=== PATIENT | male | born 1950 | race Caucasian/White ===

== ENCOUNTER → 2017-02-24 | Outpatient (CLI) | payer BC | END | disposition home or self-care (01) | LOC: GMAL 11:10 | PROVIDERS: ATTEND Family Medicine | DX: D51.3 Other dietary vitamin B12 deficiency anemia (principal); E55.9 Vitamin D deficiency, unspecified ==

== ENCOUNTER → 2018-01-20 | Outpatient (CLI) | payer MEDICARE, OTHER | LOC: GMAL 12:10 | PROVIDERS: ATTEND Family Medicine | DX: E29.1 Testicular hypofunction (principal); Z12.5 Encounter for screening for malignant neoplasm of prostate | CPT/HCPCS: 84402; 84403; G0103 ==

== ENCOUNTER 2018-09-02 10:36 | Observation (INO) | payer MEDICARE, OTHER ==
[2018-09-02] MEDS ORDERED: ASPIRIN TABLET 325 MG TAB PO ONE (10:46)
[2018-09-02] MEDS ORDERED: VERAPAMIL ER 120 MG TAB PO ONE (10:54)
[2018-09-02] MEDS: VERAPAMIL ER 120 MG TAB PO ONE (10:55)
--- NOTE | 2018-09-02 11:04 | RAD ---
Study: Single Frontal View of the Chest. Indication:new afib, chest pressure Comparison: January 15, 2014 Impression: Cardiomegaly with mild central vascular congestion. Subtle bibasilar opacities which may reflect pneumonia, atelectasis, or pulmonary edema. Follow-up to resolution recommended. Tiny pleural effusions suspected. No pneumothorax. Electronically signed by: Deny Alva MD 09/02/2018 11:02 AM TREE SHEAR OPERATOR
[2018-09-02] MEDS ORDERED: MAGNESIUM SULFATE PREMIX 2GM 2 GM in PREMIX BAG 1 BAG IVPB ONE (11:58)
[2018-09-02] MEDS ORDERED: METOPROLOL TARTRATE INJ 5 MG/5 ML VIAL IV ONE (11:59)
--- NOTE | 2018-09-02 12:15 | ED.PDOC ---
History of Present Illness - General Chief Complaint: Cardiovascular Problem Stated Complaint: Weak, chest tightness, SOB Time Seen by Provider: 09/02/18 10:39 Source: patient Exam Limitations: no limitations - History of Present Illness Initial Comments: The patient is a 68-year-old male presenting to the emergency room secondary to one to 2 weeks of intermittent shortness of breath and very mild chest pressure. It was at its worse this morning before he came in to his primary care doctor's office. He had not taken his morning dose of verapamil yet and had come in for refill on some of his medications. He was found to have a heart rate in the 140s to 160s. Upon arrival here he is in A. fib with RVR. He does not apparently have any history of A. fib with RVR that he knows of however verapamil is a choice of antihypertensive medication without that history. He does not take any blood thinners. He is not currently having any chest pain. He reports some mild shortness of breath. He has not hypoxic. He is pleasant and cooperative. He has had some mild episodes of fluttering in his chest. No syncope or near syncope. No history of any coronary artery disease. No history of any valvular disease. Timing/Duration: unsure Severity: mild Improving Factors: nothing Worsening Factors: nothing Associated Symptoms: shortness of breath Allergies/Adverse Reactions: Allergies Hydrocodone [From Hydrocodone W/Acetaminophen] Allergy (Intermediate, Verified 09/02/18 11:14) Other Itching Morphine Adverse Reaction (Severe, Verified 09/02/18 11:14) Other Makes him "GO NUTS" Home Medications: Ambulatory Orders Atorvastatin Calcium 80 mg PO DAILY 01/14/14 Montelukast [Singulair] 10 mg PO DAILY 01/14/14 Valsartan-Hydrochlorothiazide [Diovan Hct 160-12.5 mg] 1 tab PO DAILY 01/14/14 Verapamil HCl [Verapamil HCl ER] 240 mg PO DAILY 01/15/14 Fluticasone Prop 0.05% Nasal [Flonase Nasal [place]] 100 mcg NA PRN 07/13/14 Budesonide-Formoterol Fumarate [Symbicort 160-4.5 Mcg/Act] 2 puff INH BID 09/02/18 Meloxicam 15 mg PO DAILY 09/02/18 Metformin HCl 1,000 mg PO BID 09/02/18 Tamsulosin [Flomax] 0.4 mg PO BEDTIME 09/02/18 raNITIdine HCL [Zantac] 150 mg PO DAILY 09/02/18 Review of Systems - Review of Systems Constitutional: States: no symptoms reported EENTM: States: no symptoms reported Respiratory: States: short of breath Cardiology: States: see HPI, palpitations Gastrointestinal/Abdominal: States: no symptoms reported Genitourinary: States: no symptoms reported Musculoskeletal: States: no symptoms reported Skin: States: no symptoms reported Neurological: States: no symptoms reported Endocrine: States: no symptoms reported All other Systems: No Change from Baseline Past Medical History (General) - Patient Medical History Hx Seizures: No Hx Stroke: No Hx Asthma: Yes Hx of COPD: No Hx Cardiac Disorders: No Hx Congestive Heart Failure: No Hx Pacemaker: No Hx Hypertension: Yes Hx Diabetes: Yes Hx Gastroesophageal Reflux: Yes Hx MRSA: No - Vaccination History Hx Influenza Vaccination: No Hx Pneumococcal Vaccination: No - Social History Hx Tobacco Use: Yes Hx Alcohol Use: No Hx Substance Use: No Hx Physical Abuse: No Hx Emotional Abuse: No Family Medical History - Family History Father Living Status: Cause of : Cardiac in nature Hx Family Hypertension: Yes Hx Cardiac Disease: Yes Hx Family Diabetes: Yes Physical Exam - Physical Exam General Appearance: Alert, Comfortable, No apparent distress Eye Exam: bilateral normal Ears, Nose, Throat: hearing grossly normal, normal ENT inspection, normal pharynx Neck: full range of motion, supple, normal inspection Respiratory: lungs clear, normal breath sounds, no respiratory distress, no accessory muscle use Cardiovascular/Chest: normal peripheral pulses, no edema, tachycardia, irregularly irregular Peripheral Pulses: radial,right: 2+, radial,left: 2+, dorsalis pedis,right: 2+, dorsalis pedis,left: 2+ Gastrointestinal/Abdominal: non tender - obese, soft Rectal Exam: deferred Back Exam: no CVA tenderness, no vertebral tenderness Extremity: normal range of motion, non-tender, normal inspection, no pedal edema, normal capillary refill Neurologic: cell reliner II-XII nml as tested, alert, normal mood/affect, oriented x 3 Skin Exam: normal color Comments: Vital Signs - 24 hr 09/02/18 09/02/18 09/02/18 10:36 11:00 11:15 Temperature 98.7 F Pulse Rate [ 154 H 136 H 122 H Apical] Respiratory 24 24 24 Rate Blood Pressure 116/85 148/83 114/90 [Left Arm] O2 Sat by Pulse 94 L 94 L 92 L Oximetry Progress - Progress Progress: 09/02/18 12:16 the patient is a 68-year-old male presenting to the emergency room secondary to mildly symptomatic atrial fibrillation with rapid ventricular rate that appears to be a new diagnosis. He did receive a dose of IV diltiazem along with a small dose of oral verapamil. He will need another dose of oral verapamil later in the day. He has also received 1 dose of subcutaneous Lovenox. He is also received one small trial dose of IV Lopressor. We are currently awaiting the results of this. No evidence of any elevation of cardiac enzymes at this time though a repeat in 8 hours or so may be warranted. Admit for rate control and anticoagulation as well as monitoring overnight. He is feeling much better with the rate control. - Results/Orders Results/Orders: Laboratory Tests 09/02/18 09/02/18 09/02/18 11:08 11:08 11:08 WBC 6.7 RBC 5.00 Hgb 16.8 Hct 49.7 MCV 99.4 H MCH 33.5 H MCHC 33.7 RDW 14.2 Plt Count 166 MPV 9.5 Absolute Neuts (auto) 4.50 Absolute Lymphs (auto) 1.60 Absolute Monos (auto) 0.50 Absolute Eos (auto) 0.10 Absolute Basos (auto) 0.10 Neutrophils % 66.7 Lymphocytes % 23.3 Monocytes % 8.0 Eosinophils % 1.0 Basophils % 1.0 PT 12.4 H INR 1.24 H PTT (SP) 24.1 Sodium 140 Potassium 3.7 Chloride 103 Carbon Dioxide 28 Anion Gap 12.7 BUN 12 Creatinine 0.65 BUN/Creatinine Ratio 18.5 Random Glucose 154 H Serum Osmolality 282.2 Calcium 9.8 Magnesium 1.5 L Total Bilirubin 1.1 H AST 25 ALT 46 Alkaline Phosphatase 57 Creatine Kinase 105 CK-MB (CK-2) 2.6 Troponin I < 0.02 B-Natriuretic Peptide 140.0 H Serum Total Protein 7.3 Albumin 4.1 Globulin 3.2 Albumin/Globulin Ratio 1.3 TSH 1.63 chest x-ray shows some possible very mild fluid overload. EKG shows a missing 6-lead however the patient's in atrial fibrillation with RVR at 136 bpm. Singer is mildly to the right. Poor R-wave progression in anterior leads. Nonspecific ST segment changes otherwise. Corrected QT interval is mildly prolonged but slightly difficult to interpret. He will need repeat EKGs. Departure - Departure Clinical Impression: Atrial fibrillation with RVR Disposition: Admit Patient Condition: Fair Departure Forms: ED Discharge - Pt. Copy, Patient Portal Self Enrollment Home Medications: Ambulatory Orders Atorvastatin Calcium 80 mg PO DAILY 01/14/14 Montelukast [Singulair] 10 mg PO DAILY 01/14/14 Valsartan-Hydrochlorothiazide [Diovan Hct 160-12.5 mg] 1 tab PO DAILY 01/14/14 Verapamil HCl [Verapamil HCl ER] 240 mg PO DAILY 01/15/14 Fluticasone Prop 0.05% Nasal [Flonase Nasal [place]] 100 mcg NA PRN 07/13/14 Budesonide-Formoterol Fumarate [Symbicort 160-4.5 Mcg/Act] 2 puff INH BID 09/02/18 Meloxicam 15 mg PO DAILY 09/02/18 Metformin HCl 1,000 mg PO BID 09/02/18 Tamsulosin [Flomax] 0.4 mg PO BEDTIME 09/02/18 raNITIdine HCL [Zantac] 150 mg PO DAILY 09/02/18 Decision To Admit - Decistion To Admit Decision to Admit Reason: Medical Nature Decision to Admit Date: 09/02/18 Decision to Admit Time: 12:18
[2018-09-02] MEDS ORDERED: ENOXAPARIN SODIUM 100 MG/ML SYG SUBCU ONE (12:43)
[2018-09-02] MEDS ORDERED: ENOXAPARIN SODIUM 30 MG/0.3 ML SYG SUBCU ONE (12:43)
[2018-09-02] MEDS ORDERED: MAGNESIUM SULFATE PREMIX 2GM 50 ML IVPB ONE (12:43)
--- NOTE | 2018-09-02 13:13 | HP ---
SUPERVISING PHYSICIAN: Prieto Scanlon MD CHIEF COMPLAINT: Chest tightness and shortness of breath. HISTORY OF PRESENT ILLNESS: This is a 68-year-old male patient who has been feeling poorly over the last 2 to 3 weeks. He felt like he was coming down with an upper respiratory infection and he had some shortness of breath. He also had some fluttering feelings in his chest and most of the time when he sat down to rest, his symptoms improved, but over the last day or so, they had worsened to the point where he was somewhat worried about it and he had to come to his primary care physician's office, Dr. Fong, this morning to get some medications. He mentioned it to Dr. Fong and at that time, he was found to have a rapid heart rate in the 140s and was sent to the Emergency Room. In the Emergency Room, he was found to be in atrial fibrillation with rapid ventricular response. His rate was in the 140s to 160s. He has had no history of atrial fibrillation, but is on verapamil as an antihypertensive. He had not taken his verapamil this morning. He is on no blood thinners. In the Emergency Room, he did not have any chest pain, but he did have some shortness of breath. He also had chest pains during the week, but again when he rested, those symptoms improved. In the Emergency Room, his temperature was 98.7, blood pressure 116/85, respiratory rate 24, O2 saturation 94% on room air. His EKG showed atrial fibrillation with rapid ventricular response. His lab showed CBC that basically within normal limits. His PT was 12.4, INR 1.24, PTT 44.1. Electrolytes were basically within normal limits with the exception that his magnesium was slightly low at 1.5. His sugar was slightly high in the 150s. Total bilirubin was slightly elevated at 1.1 and his BNP was 140 although he says he has no history of congestive heart failure. Chest x-ray shows cardiomegaly with mild central vascular congestion, subtle bibasilar opacities which may reflect pneumonia, atelectasis or pulmonary edema. Followup to resolution is recommended. The patient was given Cardizem IV as well as some magnesium. He was then given his regular dose of verapamil and given Lovenox 1 mg/kg. His heart rate came down into the 100s to one-teens and I was called for hospital admission. PAST MEDICAL HISTORY: 1. Hyperlipidemia. 2. Hypertension. 3. Chronic obstructive pulmonary disease. 4. Obstructive sleep apnea. 5. Tobacco abuse. 6. Gastroesophageal reflux disease. 7. Peptic ulcer disease. 8. Benign prostatic hypertrophy. 9. Type 2 diabetes mellitus. 10. Perennial allergies. 11. Obesity. PAST SURGICAL HISTORY: 1. Lumbar laminectomy in 1985 and 1987. 2. Septoplasty. OUTPATIENT MEDICATIONS: Per the EMR and awaiting verification. ALLERGIES: HYDROCODONE, MORPHINE. SOCIAL HISTORY: He lives in [place]. He is and has two children. He is a current smoker and has smoked since the age of 21. Several years ago, he reduced his smoking from 2 packs daily to 1 pack daily and in the last 6 months, has tried to wean himself down and is down to 15 cigarettes daily. He drinks alcohol on a regular basis, but only socially. He denies any illicit drug use. REVIEW OF SYSTEMS: GENERAL: Negative for fever, chills, fatigue or weight changes. HEENT: Positive for perennial allergies with some rhinorrhea. Negative for ear pain, vision changes or sore throat. RESPIRATORY: Positive for shortness of breath. Negative for wheezing, coughing. CARDIAC: Positive for chest pain in the last several days, but negative for chest pain in the Emergency Room. Positive for palpitations. GASTROINTESTINAL: Negative for nausea, vomiting, diarrhea, constipation. GENITOURINARY: Negative for hematuria, dysuria or polyuria. MUSCULOSKELETAL: Negative for arthralgias, myalgias. SKIN: Negative for lesions or rashes. NEUROLOGIC: Negative for headache, dizziness or seizures. PHYSICAL EXAMINATION: VITAL SIGNS: Temperature 98. Heart 99. Blood pressure 140/66. Respiratory rate 16. O2 saturation 92% on room air. GENERAL: This is a 68-year-old obese male who is sitting on the side of his hospital bed. He is in no acute distress. HEENT: Normocephalic, atraumatic. Pupils are equal and reactive. He does have some mild rhinorrhea. Oropharynx is clear. NECK: Supple without mass. RESPIRATORY: Essentially clear to auscultation bilaterally, but he does have distant breath sounds and is somewhat diminished at the bases. CHEST: There is equal rise and fall of the chest with inspiration and expiration. CARDIOVASCULAR: Regular to tachycardic rate, irregular rhythm. GASTROINTESTINAL: Abdomen is soft, nondistended, nontender. Bowel sounds are positive. EXTREMITIES: No cyanosis, clubbing or edema. NEUROLOGIC: Awake, alert and oriented times three. LABORATORY: Labs and films are as per history of present illness. IMPRESSION: 1. Atrial fibrillation/rapid ventricular response, new onset. 2. Hypertension. 3. Diabetes mellitus, type 2. 4. Chronic obstructive pulmonary disease without exacerbation in a chronic smoker. 5. Tobacco abuse. 6. Obstructive sleep apnea. 7. Gastroesophageal reflux disease. PLAN: We will place the patient in observation. He will be on the office system analyst. He has been given Lovenox 1 mg/kg every 12 hours. Tomorrow morning, I will start him on Eliquis and we will discontinue the Lovenox. He has a proton pump inhibitor for ulcer prophylaxis. We will watch him closely overnight. He will need a close followup with a farm equipment operator as well as his primary care physician, Dr. Fong. I have added some Cardizem 30 mg every 6 hours due to his heart rate continuing on the 100s to one-teens. After he sees cardiology, they can adjust that as needed. We will continue to monitor the patient closely and follow as needed. Dr. Scanlon is the collaborating physician and available for consultation. #[id number] [facility]
[2018-09-02] MEDS ORDERED: DEXTROSE 50% 25 GM/50 ML SYG IV PRN (13:57)
[2018-09-02] MEDS ORDERED: GLUCAGON INJ 1 MG VIAL SUBCU PRN (13:57)
[2018-09-02] MEDS ORDERED: SODIUM CHLORIDE 0.9% (FLUSH) 10 ML SYG IV PRN (13:57)
[2018-09-02] MEDS ORDERED: LEVALBUTEROL NEBS 1.25 MG/3 ML VIAL INH PRN (13:57)
[2018-09-02] MEDS ORDERED: IV SET AND CAP CHANGE INJ INJ SCH (14:00)
[2018-09-02] MEDS: PANTOPRAZOLE SODIUM IV 40 MG VIAL IV SCH (15:27)
[2018-09-02] MEDS: INSULIN LISPRO 100 UNITS/ML PEN SUBCU SCH ×3 (17:10→21:17)
[2018-09-02] MEDS: LEVALBUTEROL NEBS 1.25 MG/3 ML VIAL INH SCH ×2 (17:36→21:05)
[2018-09-02] MEDS ORDERED: ENOXAPARIN SODIUM 60 MG/0.6 ML SYG SUBCU ONE (19:53)
[2018-09-02] MEDS ORDERED: TAMSULOSIN 0.4 MG CAP PO SCH (21:00)
[2018-09-02] MEDS: BUDESONIDE/FORMOTEROL 160/4.5 60 PUFF/6 GM INH INH SCH (21:05)
[2018-09-02] MEDS: metFORMIN HCL 500 MG TAB PO SCH (21:11)
[2018-09-02] MEDS: VERAPAMIL ER 120 MG TAB PO SCH (21:12)
[2018-09-02] MEDS: SODIUM CHLORIDE 0.9% (FLUSH) 10 ML SYG IV SCH (21:17)
[2018-09-02] MEDS ORDERED: diltiaZEM HCL TAB 30 MG TAB PO SCH (22:00)
[2018-09-02] MEDS: diltiaZEM HCL TAB 30 MG TAB PO SCH (23:43)
[2018-09-03] MEDS ORDERED: GLIMEPIRIDE 2 MG TAB ONE (05:44)
[2018-09-03] MEDS ORDERED: MONTELUKAST 10 MG TAB ONE (05:44)
[2018-09-03] MEDS ORDERED: hydroCHLOROthiazide 12.5 MG CAP ONE (05:44)
[2018-09-03] MEDS ORDERED: ATORVASTATIN 20 MG TAB PO ONE (05:44)
[2018-09-03] MEDS ORDERED: MELOXICAM 7.5 MG TAB ONE (05:44)
[2018-09-03] MEDS ORDERED: VALSARTAN 80 MG TAB ONE (05:45)
[2018-09-03] MEDS: diltiaZEM HCL TAB 30 MG TAB PO SCH ×2 (05:47→11:46)
[2018-09-03 06:55] VITALS: TEMP 97.8
[2018-09-03] MEDS: INSULIN LISPRO 100 UNITS/ML PEN SUBCU SCH ×2 (07:19→11:44)
[2018-09-03] MEDS: LEVALBUTEROL NEBS 1.25 MG/3 ML VIAL INH SCH ×2 (07:25→13:31)
[2018-09-03] MEDS: BUDESONIDE/FORMOTEROL 160/4.5 60 PUFF/6 GM INH INH SCH (07:25)
[2018-09-03] MEDS ORDERED: NON-FORMULARY MEDICATION 1 EA MIS (Glimepiride [Glimepiride] 1 MG) PO SCH (07:30)
[2018-09-03] MEDS: metFORMIN HCL 500 MG TAB PO SCH (07:32)
[2018-09-03] MEDS: VERAPAMIL ER 120 MG TAB PO SCH (08:46)
[2018-09-03] MEDS: SODIUM CHLORIDE 0.9% (FLUSH) 10 ML SYG IV SCH (08:48)
[2018-09-03] MEDS ORDERED: NON-FORMULARY MEDICATION 1 EA MIS PO SCH (09:00)
[2018-09-03] MEDS ORDERED: ATORVASTATIN 20 MG TAB PO SCH (09:00)
[2018-09-03] MEDS ORDERED: VALSARTAN 80 MG TAB PO SCH (09:00)
[2018-09-03] MEDS ORDERED: MELOXICAM 7.5 MG TAB PO SCH (09:00)
[2018-09-03] MEDS ORDERED: MONTELUKAST 10 MG TAB PO SCH (09:00)
[2018-09-03] MEDS ORDERED: VERAPAMIL ER 120 MG TAB PO SCH (09:00)
[2018-09-03] MEDS ORDERED: hydroCHLOROthiazide 12.5 MG CAP PO SCH (09:00)
[2018-09-03] MEDS: VERAPAMIL ER 120 MG TAB PO ONE (10:02)
[2018-09-03 10:31] VITALS: BP 132/83
[2018-09-03 13:32] VITALS: O2SAT 95
[2018-09-03] MEDS: PANTOPRAZOLE SODIUM IV 40 MG VIAL IV SCH (15:38)
[2018-09-03] MEDS ORDERED: GLIMEPIRIDE 2 MG TAB PO SCH (17:00)
[2018-09-03] MEDS ORDERED: APIXABAN 2.5 MG TAB PO SCH (21:00)
--- NOTE | 2018-09-04 08:13 | DS ---
SUPERVISING PHYSICIAN: Prieto Scanlon MD DISCHARGE DIAGNOSIS: 1. Atrial fibrillation with a rapid ventricular response, new onset. 2. Hypertension, stable. 3. Diabetes mellitus, type 2. 4. Chronic obstructive pulmonary disease without exacerbation in a chronic smoker. 5. Tobacco abuse. 6. Obstructive sleep apnea. 7. Gastroesophageal reflux disease. HISTORY OF PRESENT ILLNESS: This is a 68-year-old male patient who has been feeling poorly over the previous 2 to 3 weeks. He initially felt like he was coming down with an upper respiratory infection and he had some shortness of breath. He also had some fluttering feelings in his chest and most of the time when he sat down to rest, his symptoms improved, but over the previous one to two days before his admission, his symptoms had worsened to the point that he became worried about it. He had gone to his primary care physician's office, Dr. Fong, to get some medication refills and he mentioned it to his nurse. An EKG was done at that time and he was found to have a rapid heart rate and was sent to the Emergency Room. In the Emergency Room, he was found to have a heart rate in the 140s to 160s. He was in atrial fibrillation with rapid ventricular response. He has had no history of atrial fibrillation, but is on verapamil as an antihypertensive. He has had hypertension since he was in his late teens. He had not taken his morning dose of verapamil. In the Emergency Room, he was given his verapamil as well as some IV Cardizem. His heart rate went down to the 130s. He was also given some Lopressor IV. His heart rate came down to the one-teens to 120s. Hemodynamically, he remained stable. His temperature was 98.7, blood pressure 116/85, respiratory rate 24, O2 saturation 94% on room air. His CBC that basically within normal limits. His coags were within normal limits. Electrolytes were basically within normal limits with the exception that his magnesium was slightly low at 1.5. His sugar was slightly high in the 150s. Total bilirubin was slightly elevated at 1.1 and his BNP was 140 although he says he has no history of congestive heart failure. Chest x-ray shows cardiomegaly with mild central vascular congestion, subtle bibasilar opacities which may represent pneumonia, atelectasis or pulmonary edema. Followup was recommended. His heart rate came down into the 100s to one-teens and he was placed in observation in the hospital. HOSPITAL COURSE: His heart rate continued in the 100s to 1-teens, occasionally in the 120s after his initial admission. He was then started on Cardizem 30 mg every 6 hours. His heart rate came down to the 80s and 90s. Lovenox 1 mg/kg was started in the Emergency Room and continued after admission. He was transitioned to Eliquis 5 mg b.i.d. for anticoagulation. He continued in atrial fibrillation. His home medications were restarted. He had no complaints of chest pain during his hospital admission. This morning, he continued in atrial fibrillation with a heart rate that varied between 66 and 85. His blood pressure remained stable with a high blood pressure of 153/83 and his lowest blood pressure was 117/75. He was afebrile. His O2 saturations remained stable. His followup showed a CBC within normal limits as well as CMP that was basically within normal limits. His blood sugars ran as low as 101 up to 158. His bilirubin normalized to 1.0. He had no complaints of chest pain or shortness of breath. It is to be noted that his heart rate did go up to the low 100s with exertion, but there were no complaints of shortness of breath or chest pain. He will be discharged home in stable condition. DISCHARGE PLAN: The patient will be discharged home in stable condition. He is to continue his previous medications. I have added Cardizem 30 mg every 6 hours until he sees Dr. Fong on 09/09/18 at 9:15 AM. At that time, it would be recommended he have a cardiology referral. He will also need a followup x-ray as recommended by the radiologist. He will also continue on Eliquis 5 mg b.i.d. I have sent a prescription for the Cardizem to [facility] in [place]. I have given him 2 weeks of Eliquis samples. He is to followup with Dr. Fong' office or return to the hospital for any problems or complications. We discussed his heart rate and he is to take his heart rate and blood pressure medications daily, especially if he feels any fluttering in the chest or shortness of breath. He is to increase his activity as tolerated, but to limit his exertional activities until he follows up with Dr. Fong and supervisor cutting and boning. DISCHARGE MEDICATIONS: 1. Valsartan/hydrochlorothiazide. 2. Singulair. 3. Atorvastatin. 4. Flonase nasal spray. 5. Zantac. 6. Flomax. 7. Metformin. 8. Meloxicam. 9. Symbicort. 10. Glimepiride. 11. Verapamil. 12. Eliquis. 13. Diltiazem. #[id number] [facility]
== END 2018-09-03 15:40 | disposition home or self-care (01) ==
LOC: ER 10:36 → MS 13:10 → INTOOBSV 13:10
PROVIDERS: ADMIT Nurse Practitioner Acute Care; ATTEND Nurse Practitioner Acute Care
DX: I48.91 Unspecified atrial fibrillation (principal); I10 Essential (primary) hypertension; E11.65 Type 2 diabetes mellitus with hyperglycemia; J44.9 Chronic obstructive pulmonary disease, unspecified; F17.210 Nicotine dependence, cigarettes, uncomplicated; G47.33 Obstructive sleep apnea (adult) (pediatric); K21.9 Gastro-esophageal reflux disease without esophagitis; E83.42 Hypomagnesemia; E78.5 Hyperlipidemia, unspecified; N40.0 Benign prostatic hyperplasia without lower urinary tract symptoms; Z79.84 Long term (current) use of oral hypoglycemic drugs; Z79.1 Long term (current) use of non-steroidal anti-inflammatories (NSAID); Z79.51 Long term (current) use of inhaled steroids; Z79.899 Other long term (current) drug therapy; Z88.5 Allergy status to narcotic agent; Z88.6 Allergy status to analgesic agent; Z87.11 Personal history of peptic ulcer disease
CPT/HCPCS: 96365; 96375; 96372; J1650 ×3; J3475; J7614 ×4; 82553; 80053 ×2; 82948 ×4; 36415 ×2; 85025 ×2; 82550; 83735 ×2; 85730; 85610; 84443; 84484; 83880; 36416 ×4; 71045; 94640 ×5; 94760 ×2; 94664; 99285; 93005

== ENCOUNTER → 2018-10-12 | Outpatient (CLI) | payer MEDICARE, OTHER | LOC: GMAL 16:44 | PROVIDERS: ATTEND Family Medicine | DX: D51.3 Other dietary vitamin B12 deficiency anemia (principal); E55.9 Vitamin D deficiency, unspecified ==

== ENCOUNTER → 2018-12-16 | Outpatient (CLI) | payer MEDICARE, OTHER | LOC: GMAL 10:50 | PROVIDERS: ATTEND Family Medicine | DX: J30.9 Allergic rhinitis, unspecified (principal) ==

== ENCOUNTER → 2019-02-23 | Outpatient (CLI) | payer MEDICARE, OTHER | LOC: LAB.NP 12:00 | PROVIDERS: ATTEND Family Medicine | DX: D51.3 Other dietary vitamin B12 deficiency anemia (principal); E55.9 Vitamin D deficiency, unspecified; I10 Essential (primary) hypertension; E11.9 Type 2 diabetes mellitus without complications; E78.5 Hyperlipidemia, unspecified ==

== ENCOUNTER → 2019-04-13 | Outpatient (CLI) | payer MEDICARE, OTHER | LOC: GMAL 10:43 | PROVIDERS: ATTEND Family Medicine | DX: R53.82 Chronic fatigue, unspecified (principal); I10 Essential (primary) hypertension; E78.2 Mixed hyperlipidemia ==

== ENCOUNTER → 2020-03-14 | Outpatient (CLI) | payer MEDICARE, OTHER | LOC: GMAL 14:52 | PROVIDERS: ATTEND Family Medicine | DX: D51.3 Other dietary vitamin B12 deficiency anemia (principal); Z12.5 Encounter for screening for malignant neoplasm of prostate; R53.82 Chronic fatigue, unspecified; E55.9 Vitamin D deficiency, unspecified; I10 Essential (primary) hypertension | CPT/HCPCS: 82306; 82607; 84443; G0103 ==

== ENCOUNTER → 2020-03-29 | Outpatient (CLI) | payer MEDICARE, OTHER | LOC: GMAL 10:15 | PROVIDERS: ATTEND Family Medicine | DX: R97.20 Elevated prostate specific antigen [PSA] (principal) ==